=== PATIENT | male | born 1955 | race Caucasian/White ===

== ENCOUNTER 2023-04-21 06:12 | Day surgery (SDC) | payer MEDICARE, OTHER, SELFPAY ==
--- NOTE | 2023-03-17 09:15 | CM ---
Patient is scheduled for an elective R THR on 05/04/23- he is a same day patient. Spoke with patient's prior to surgery. Patient had a L TKR at in 2016. Reintroduced role of Orthopedic Navigator. She reports that she, patient, their son and
grandson lives with his in a two story home. There is one step to enter and patient has a first floor set up. He currently requires assist with putting on his socks and medication administration but otherwise functions independently. He has a
cane, cpap, raised toilet seat, firm cushion, grabber and rolling walker. He has had [facility]N services through [facility]. PCP is Oscar Rudd.
Discussed orthopedic program and post surgical plans. Reviewed that he will have VN services initially (medicare.gov website and ratings reviewed) and will then start outpatient PT. Patient selects [facility] (face sheet faxed to [facility] to facilitate
confirmation of benefits) for his home care needs and will go to [facility] for outpatient PT.
She is in agreement with plan and states that she will be home with him.
Patient will complete online education.
Plan: Orthopedic Navigator will remain available to assist with the care of patient and will reassess discharge needs after surgery.
[2023-03-29 10:31] VITALS: BMI 38.5
[2023-03-29 10:56] LABS: Hematocrit 40.4 % (39.0-52.0); Hemoglobin 13.5 g/dL (13.0-18.0); Mean Corp Hgb Conc. 33.4 g/dL (33.0-37.0); Mean Corpuscular Hgb 30.6 pg (27.0-31.0); Mean Corpuscular Volume 91.6 fL (80.0-94.0); Mean Platelet Volume 8.6 fL (7.4-10.4); Platelet Count 480 10^3/uL (130-400); Red Blood Cell Count 4.41 10^6/uL (4.70-6.10); Red Cell Dist. Width 13.5 % (11.5-14.5); White Blood Cell Count 11.1 10^3/uL (4.8-10.8)
[2023-03-29 11:13] LABS: ALT (SGPT) 25 U/L (0-50); AST (SGOT) 23 U/L (17-59); Albumin 4.5 g/dl (3.5-5.0); Alkaline Phosphatase 85 U/L (38-126); Blood Urea Nitrogen 13 mg/dl (9-20); Calcium 9.8 mg/dl (8.4-10.2); Carbon Dioxide 25 mmol/L (22-30); Chloride 101 mmol/L (98-107); Estimated Creatinine Clearance 115 ml/min; Glucose 143 mg/dl (70-99); Potassium 4.8 mmol/L (3.5-5.1); Sodium 134 mmol/L (135-145); Total Bilirubin 0.6 mg/dl (0.2-1.3); Total Protein 7.7 g/dl (6.3-8.2); eGFR > 60.00
[2023-03-29 13:14] LABS: Glycohemoglobin (HgbA1c) 7.2 % (4.0-5.6)
[2023-03-29 16:36] VITALS: BMI 38.5
[2023-04-21] VITALS (11 sets, daily range): BP systolic 124–168; BP diastolic 69–97; PULSE 86; O2SAT 97; BMI 38.5
[2023-04-21 06:20] LABS: Glucose - Point of Care 136 mg/dl (70-99)
[2023-04-21] MEDS: CELEBREX 200 MG PO (06:47)
[2023-04-21] MEDS: NORMOSOL-R 1000 IV (06:47)
[2023-04-21] MEDS: TYLENOL 650 MG PO (06:47)
--- NOTE | 2023-04-21 07:32 | W.DS.TRANS ---
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
-
Discharge Instructions:
Discharge Diagnosis/Procedures R JOANNA Dr. Rae 04/21/23
Diet Diabetic, Carb Controlled
Activity With Walker
Additional Activity hip precautions
Driving Restrictions No driving
Bathing Restrictions OK to Shower
Other Services [facility]
Instructions:
Stand-Alone Forms: SDS Total Hip and Knee D/C
Changes to Home Medications: Yes
Discharge Medications:
DC Medications w/original date entered in [facility]
albuterol sulfate 90 mcg/actuation aerosol inhaler 2 puff inhalation Q4H PRN wheezing 09/09/14
finasteride 5 mg tablet 5 mg PO DAILY 09/09/14
metformin 500 mg tablet 1,000 mg PO BID 09/09/14
simvastatin 5 mg tablet 5 mg PO HS 09/09/14
Vitamin B12: 1 dose PO .EVERY OTHER DAY 03/07/15
cetirizine 10 mg tablet 10 mg PO DAILY 03/07/15
Men 50 Plus Multivitamin 1 tab PO DAILY 03/22/23
amlodipine 5 mg tablet 10 mg PO DAILY 03/22/23
docusate sodium 100 mg capsule 100 mg PO PRN PRN constipation 03/22/23
infliximab 100 mg intravenous solution (Remicade) 100 mg IV .EVERY 8 WEEKS 03/22/23
insulin lispro 100 unit/mL subcutaneous solution (Humalog U-100 Insulin) 1 sliding scale dose SC .BEFORE MEALS 03/22/23
oxycodone-acetaminophen 7.5 mg-325 mg tablet 1 tab PO Q8H PRN pain 03/22/23
spironolactone 50 mg tablet 50 mg PO BID 03/22/23
tirzepatide 7.5 mg/0.5 mL subcutaneous pen injector (Mounjaro) 7.5 mg SC BARRETO 03/22/23
gabapentin 300 mg capsule 300 mg PO TID #30 caps 03/29/23
meloxicam 15 mg tablet 15 mg PO DAILY anti-inflammatory #14 tabs 03/29/23
mupirocin 2 % topical ointment 1 applic topical BID infection prevention #1 tube 03/29/23
oxycodone 10 mg tablet 10 mg PO Q4H PRN moderate-severe breakthru pain #50 tabs 03/29/23
oxycodone 10 mg tablet,crush resistant,extended release 12 hr (OxyContin) 10 mg PO Q12H ongoing therapy #15 tabs 03/29/23
Saccharomyces boulardii 250 mg capsule (Florastor) 250 mg PO BID #1 cap 04/21/23
acetaminophen 325 mg capsule (Tylenol) 650 mg PO QID #2 caps 04/21/23
aspirin 325 mg tablet 325 mg PO DAILY blood clot prevention #1 tab 04/21/23
beclomethasone dipropionate 40 mcg/actuation aerosol inhaler 80 mcg inhalation DAILY 04/21/23
cefadroxil 500 mg capsule 500 mg PO BID infection prevention #14 caps 04/21/23
duloxetine 60 mg capsule,delayed release 60 mg PO DAILY 04/21/23
hydralazine 50 mg tablet 50 mg PO BID #0 tabs 04/21/23
insulin glargine 100 unit/mL subcutaneous solution (Lantus U-100 Insulin) 40 unit (0.4 mL) SC DAILY #0 mL 04/21/23
magnesium hydroxide 400 mg/5 mL oral suspension (Milk of Magnesia) 30 ml PO HS PRN Constipation #1 mL 04/21/23
pantoprazole 40 mg tablet,delayed release 40 mg PO DAILY 04/21/23
sennosides 8.6 mg tablet (Senokot) 17.2 mg PO BID laxative #2 tabs 04/21/23
Home Medication Changes
gabapentin 300 mg capsule 300 mg PO TID #30 caps 03/29/23
meloxicam 15 mg tablet 15 mg PO DAILY anti-inflammatory #14 tabs 03/29/23
cefadroxil 500 mg capsule 500 mg PO BID infection prevention #14 caps 04/21/23
Pending Results: No
[2023-04-21 09:05] LABS: Glucose - Point of Care 138 mg/dl (70-99)
[2023-04-21] MEDS: ROXICODONE 5 MG PO ×2 (11:03→11:47)
[2023-04-21 11:17] LABS: Glucose - Point of Care 193 mg/dl (70-99)
[2023-04-21] MEDS: NOVOLOG vial 2 UNITS SC (11:20)
--- NOTE | 2023-04-21 11:35 | CM ---
Patient had planned R THR today. Met with patient and his at bedside to review discharge plans. Patient will be returning home today with services through [facility]. On Tuesday, 04/25, patient will start outpatient PT at [facility]. Reviewed MD follow
up in two weeks and patient is aware of need to schedule appointment.
Patient has his rolling walker here with him.
PT and [facility] were kept updated as to progress and discharge plans.
[2023-04-21] MEDS: ANCEF 5 IV (11:37)
--- NOTE | 2023-04-22 09:20 | OR.RPT ---
Operative Report
Operative Report
Orthopaedic Surgery Operative Note
DATE OF OPERATION: 04/21/2023
PREOPERATIVE DIAGNOSES: Osteoarthritis, right hip
POSTOPERATIVE DIAGNOSES: Same
OPERATION PERFORMED: Right total hip arthroplasty.
SURGEON: Toan Rae MD
WORKGROUP LEADER: Javier Cummings PA-C who assisted with patient positioning and retraction
ANESTHESIA: Spinal
COMPLICATIONS: None.
ESTIMATED BLOOD LOSS: 50 mL.
DRAINS: None
SPECIMEN: None
FINDINGS: Advanced articular cartilage wear on the femoral head and acetabulum.
IMPLANTS:
Biomet G7 Acetabular Shell, cluster hole, size 56mm
Biomet G7 Highly Crosslinked PE Liner, neutral
[place] M/L Taper femoral stem, size 12.5 with standard neck length and standard offset
Biolox Ceramic Head, size 40mm +0
INDICATIONS: The patient presented to my office with debilitating right hip pain due to osteoarthritis. We reviewed the natural history of this problem, as well as the risks, benefits, and alternatives of various treatment options. The patient
exhausted all nonoperative treatment options and wished to proceed with hip replacement surgery. The patient understood the risks which included, but were not limited to, bleeding, infection, failure to relieve pain, more pain than preop, damage to
blood vessels and nerves, need for reoperation, mechanical failure of the implants, wound healing problems, stiffness, instability, blood clot, pulmonary embolism, myocardial infarction, pneumonia, arrhythmia, CVA, and . The patient accepted
these risks and wished to proceed. All questions were answered, and informed consent was obtained.
PROCEDURE IN DETAIL: The patient was identified in the preoperative holding area. The right hip was identified as the operative site. The patient was taken in the operating room and transferred to the operative table. Spinal anesthesia was
performed. IV antibiotics and tranexamic acid were administered. The patient was placed in the lateral position with Stulberg hip positioners. Axillary roll was placed. The down leg was well padded. All bony prominences were well padded. The
operative limb was prepped and draped in the usual sterile fashion.
Time out was performed. A posterolateral approach to the hip was used. The skin incision was centered over the greater trochanter. This was taken down sharply through subcutaneous tissues. Meticulous hemostasis was achieved throughout the case with
electrocautery. We split the fascia audelia in line with skin incision. I split the gluteus torey bluntly. We cauterized all crossing vessels as we split it. I palpated the sciatic nerve and made sure it was well posterior in the operative field. It
was protected throughout the case.
I performed a partial bursectomy to identify the short external rotators. The gluteus medius and minimus were identified and retracted anteriorly. I incised the piriformis tendon and conjoint tendon at their insertions. These were tagged for later
repair. I then performed a trapezoidal capsulotomy. The edges were tagged for later repair. I referenced the cut edge of the capsular flap to 2 fixed points on the greater trochanter for assistance with recreation of limb length and offset. I then
dislocated the hip posteriorly. I performed a femoral neck osteotomy approximately 10 mm above the lesser trochanter, as per preoperative templating. The femoral head measured 51 mm in outer diameter. The distance between neck cut and the center of
femoral head was 37.5. I placed a curve hohmann retractor over the anterior lip of the acetabulum between the labrum and the anterior hip capsule. A second retractor was placed inferiorly just distal to the transverse acetabular ligament.
Circumferential view of the acetabulum was achieved. I incised the labrum and pulvinar with electrocautery. I started with a 51 mm reamer and reamed down to the medial wall. I then sequentially reamed up to a 55mm reamer. This gave a nice bed of
bleeding bone with excellent column support anteriorly and posteriorly. I impacted the acetabular shell in approximately 40 degrees of abduction and 20 degrees of anteversion. I matched the anteversion of the transverse acetabular ligament. I also
made sure that the anterior rim of the socket was not proud of the anterior wall to minimize the chance of iliopsoas tendinitis. I confirmed the cup was well-seated. I then impacted a neutral liner and confirmed it was well seated with the locking
mechanism.
On the femoral side, I use a box osteotome to open the proximal starting point. I found the canal with a Charnley awl and a lateralizing reamer. I then used the [place] M/L taper broaches sequentially to prepare the femoral canal. The size 12.5 came
to a stop at the desired level and had excellent axial and rotational stability. We trialed with a trial ball head. The hip was taken through a complete range of motion. It was noted to be stable in extension without impingement. It was stable in
the position of sleep and in flexion with internal rotation. The limb length and offset were checked compared to the capsular flap and was appropriate. The measured length between the neck cut and center of the trial femoral head was 40mm.
I removed the trials. I impacted the femoral implant to match the nome version. It had excellent axial and rotational stability. Trial ball head was placed, and I reduced the hip and took the hip through range of motion. There was no impingement
in external rotation and extension. Position of sleep was stable. At 90 degrees of flexion and slight adduction, the hip could be internally rotated to 90 degrees with no subluxation. I palpated the sciatic nerve, which was tension free and
unharmed. Based on our capsular flap measurement, we had restored the offset and leg length. The trial ball head was removed, and the final ball head was impacted onto a clean and dry Burch taper. The hip was reduced.
A dilute betadine soak was performed for approximately 3 minutes, and then the hip was copiously irrigated. I repaired the capsule, piraformis, and conjoint tendon with #2 Ethibond to drill holes in the greater trochanter. Local anesthetic was
injected. The fascia audelia was closed with #1 PDS in running fashion. The subcutaneous tissues were closed with 2-0 PDS in running fashion. The skin was reapproximated with 3-0 Monocryl subcuticular suture. I placed a Prineo dressing followed by a
Mepilex Ag dressing. The patient awoke from anesthesia without difficulty. Sponge and instrument counts were correct x2 at the end of the case.
I was present and participated in the entire procedure. The patient was sent to the recovery room in stable condition.
Ko Rae MD
== END 2023-04-21 12:52 | disposition home health service (06) ==
LOC: SDS 06:12
PROVIDERS: ATTENDING PHYSICIAN Orthopaedic Surgery; FAMILY PHYSICIAN Physician Assistant Medical; OTHER PHYSICIAN Internal Medicine Cardiovascular Disease; OTHER PHYSICIAN Physician Assistant; OTHER PHYSICIAN Physician Assistant Medical
DX: M16.11 Unilateral primary osteoarthritis, right hip (principal)
CPT/HCPCS: 27130; 36415; 73502; 80053; 82962; 83036; 85027; 87070; 93005; 97116; 97161; C1776

== ENCOUNTER → 2023-07-14 11:47 | Outpatient (REF) | payer MEDICARE, OTHER, SELFPAY ==
[2023-07-14 14:08] LABS: % Basophils 1.1 % (0-2); % Eosinophils 8.3 % (0-6); % Immature Granulocytes 0.3 % (0-0.5); % Monocytes 8.3 % (1.7-9.3); Absolute Basophils 0.1 10^3/uL (0-0.2); Absolute Eosinophils 0.7 10^3/uL (0-0.7); Absolute Lymphocytes 1.7 10^3/uL (1.2-3.4); Absolute Monocytes 0.7 10^3/uL (0.1-0.6); Absolute Neutrophils 5.6 10^3/uL (1.4-6.5); Hematocrit 36.2 % (39.0-52.0); Hemoglobin 11.8 g/dL (13.0-18.0); Mean Corp Hgb Conc. 32.6 g/dL (33.0-37.0); Mean Corpuscular Hgb 27.5 pg (27.0-31.0); Mean Corpuscular Volume 84.4 fL (80.0-94.0); Mean Platelet Volume 8.5 fL (7.4-10.4); Nucleated Red Blood Cells % 0 % (-); Platelet Count 504 10^3/uL (130-400); Red Blood Cell Count 4.29 10^6/uL (4.70-6.10); White Blood Cell Count 8.9 10^3/uL (4.8-10.8)
[2023-07-14 15:10] LABS: ALT (SGPT) 15 U/L (0-50); AST (SGOT) 19 U/L (17-59); Albumin 4.6 g/dl (3.5-5.0); Alkaline Phosphatase 84 U/L (38-126); Blood Urea Nitrogen 12 mg/dl (9-20); Calcium 10.2 mg/dl (8.4-10.2); Carbon Dioxide 24 mmol/L (22-30); Chloride 101 mmol/L (98-107); Glucose 156 mg/dl (70-99); HDL Cholesterol 52 mg/dl; LDL Cholesterol, Calculated 45 mg/dl; PSA, Total - Screen < 0.06 ng/ml (0.0-4.0); Sodium 135 mmol/L (135-145); TSH 0.72 uIU/ml (0.47-4.68); Total Bilirubin 0.4 mg/dl (0.2-1.3); Total Cholesterol 141 mg/dl (50-199); Total Protein 7.8 g/dl (6.3-8.2); Triglyceride 220 mg/dl (10-149); Very Low Density Lipoprotein 44 mg/dl (0-30); eGFR > 60.00
[2023-07-15 08:53] LABS: Glycohemoglobin (HgbA1c) 7.7 % (4.0-5.6)
== END ==
LOC: REG 11:47
PROVIDERS: ATTENDING PHYSICIAN Physician Assistant; FAMILY PHYSICIAN Physician Assistant Medical
DX: E11.65 Type 2 diabetes mellitus with hyperglycemia (principal); E04.1 Nontoxic single thyroid nodule; R79.89 Other specified abnormal findings of blood chemistry; Z12.5 Encounter for screening for malignant neoplasm of prostate
CPT/HCPCS: 36415; 80053; 80061; 83036; 84443; 85025; G0103

== ENCOUNTER → 2023-08-30 06:23 | Day surgery (SDC) | payer MEDICARE, OTHER, SELFPAY ==
[2023-08-30 07:57] LABS: Glucose - Point of Care 163 mg/dl (70-99)
== END ==
LOC: GI 06:23
PROVIDERS: ATTENDING PHYSICIAN Internal Medicine Gastroenterology; FAMILY PHYSICIAN Physician Assistant Medical
DX: Z12.11 Encounter for screening for malignant neoplasm of colon (principal); K57.30 Diverticulosis of large intestine without perforation or abscess without bleeding; K22.2 Esophageal obstruction; K44.9 Diaphragmatic hernia without obstruction or gangrene; R12 Heartburn; D12.2 Benign neoplasm of ascending colon; D12.3 Benign neoplasm of transverse colon; Z86.010 Personal history of colon polyps
CPT/HCPCS: 45385; 43235; 88305; 82962

== ENCOUNTER → 2023-10-10 11:09 | Outpatient (REF) | payer MEDICARE, OTHER, SELFPAY ==
[2023-10-10 12:21] LABS: % Basophils 1.7 % (0-2); % Eosinophils 13.9 % (0-6); % Immature Granulocytes 0.7 % (0-0.5); % Lymphocytes 24.1 % (20.5-51.1); % Monocytes 10.2 % (1.7-9.3); % Neutrophils 49.4 % (42.2-75.2); Absolute Basophils 0.2 10^3/uL (0-0.2); Absolute Eosinophils 1.2 10^3/uL (0-0.7); Absolute Immature Granulocytes 0.1 10^3/uL (0-0.05); Absolute Lymphocytes 2.2 10^3/uL (1.2-3.4); Absolute Monocytes 0.9 10^3/uL (0.1-0.6); Absolute Neutrophils 4.4 10^3/uL (1.4-6.5); Hematocrit 37.4 % (39.0-52.0); Hemoglobin 12.7 g/dL (13.0-18.0); Mean Corpuscular Volume 88.2 fL (80.0-94.0); Mean Platelet Volume 8.5 fL (7.4-10.4); Nucleated Red Blood Cells % 0 % (-); Platelet Count 425 10^3/uL (130-400); Red Blood Cell Count 4.24 10^6/uL (4.70-6.10); White Blood Cell Count 8.9 10^3/uL (4.8-10.8)
[2023-10-10 12:57] LABS: ALT (SGPT) 18 U/L (0-50); AST (SGOT) 18 U/L (17-59); Albumin 4.6 g/dl (3.5-5.0); Alkaline Phosphatase 86 U/L (38-126); Blood Urea Nitrogen 14 mg/dl (9-20); Calcium 10.1 mg/dl (8.4-10.2); Carbon Dioxide 26 mmol/L (22-30); Chloride 98 mmol/L (98-107); Glucose 213 mg/dl (70-99); HDL Cholesterol 52 mg/dl; Iron 135 ug/dl (49-181); LDL Cholesterol, Calculated 68 mg/dl; Potassium 5.1 mmol/L (3.5-5.1); Sodium 136 mmol/L (135-145); Total Bilirubin 0.4 mg/dl (0.2-1.3); Total Cholesterol 165 mg/dl (50-199); Total Protein 7.5 g/dl (6.3-8.2); Triglyceride 228 mg/dl (10-149); Very Low Density Lipoprotein 45 mg/dl (0-30); eGFR > 60.00
[2023-10-10 12:58] LABS: C-Reactive Protein < 5.00 mg/L (0.0-10.00)
[2023-10-10 13:06] LABS: Percent Saturation 43 % (20-50); Total Iron Binding Capacity 313 ug/dl (261-462)
[2023-10-10 13:07] LABS: Microalbumin/creatinine Ratio 7.4 mg/g
[2023-10-10 13:14] LABS: Glycohemoglobin (HgbA1c) 7.9 % (4.0-5.6)
[2023-10-10 13:33] LABS: Ferritin 70.8 ng/ml (17.9-464.0)
[2023-10-10 13:47] LABS: Vitamin B12 381 pg/ml (239-931)
[2023-10-10 15:45] LABS: Erythrocyte Sed Rate 20 mm/hour (0-20)
[2023-10-10 18:41] LABS: Hepatitis B Surface Antigen Negative (Negative)
[2023-10-10 18:59] LABS: Hepatitis B Core Ab, Total Negative (Negative); Hepatitis B Surface Antibody Negative
[2023-10-12 10:39] LABS: Vitamin D 1,25 Dihydroxy 31.4 pg/mL (19.9-79.3)
== END ==
LOC: REG 11:09
PROVIDERS: ATTENDING PHYSICIAN Specialist; FAMILY PHYSICIAN Physician Assistant; OTHER PHYSICIAN Internal Medicine Gastroenterology; REFERRING PHYSICIAN Nurse Practitioner Adult Health
DX: E11.8 Type 2 diabetes mellitus with unspecified complications (principal); E11.65 Type 2 diabetes mellitus with hyperglycemia; D75.839 Thrombocytosis, unspecified; D64.9 Anemia, unspecified; D50.9 Iron deficiency anemia, unspecified; E56.8 Deficiency of other vitamins; K50.90 Crohn's disease, unspecified, without complications
CPT/HCPCS: 36415; 80053; 80061; 82043; 82570; 82607; 82652; 82728; 83036; 83540; 83550; 85025; 85652; 86140; 86704; 86706; 87340

== ENCOUNTER → 2023-10-12 15:34 | Outpatient (REF) | payer MEDICARE, OTHER, SELFPAY | LOC: REG 15:34 | PROVIDERS: ATTENDING PHYSICIAN Internal Medicine Gastroenterology | DX: K50.90 Crohn's disease, unspecified, without complications (principal) | CPT/HCPCS: 83993 ==

== ENCOUNTER → 2024-02-25 11:21 | Outpatient (REF) | payer MEDICARE, OTHER, SELFPAY ==
[2024-02-25 12:40] LABS: % Basophils 1.1 % (0-2); % Eosinophils 11.6 % (0-6); % Immature Granulocytes 1.4 % (0-0.5); % Lymphocytes 23.1 % (20.5-51.1); % Monocytes 9.6 % (1.7-9.3); % Neutrophils 53.2 % (42.2-75.2); Absolute Basophils 0.1 10^3/uL (0-0.2); Absolute Eosinophils 1.2 10^3/uL (0-0.7); Absolute Immature Granulocytes 0.2 10^3/uL (0-0.05); Absolute Lymphocytes 2.4 10^3/uL (1.2-3.4); Absolute Neutrophils 5.6 10^3/uL (1.4-6.5); Hematocrit 40.9 % (39.0-52.0); Hemoglobin 13.4 g/dL (13.0-18.0); Mean Corp Hgb Conc. 32.8 g/dL (33.0-37.0); Mean Corpuscular Hgb 30.6 pg (27.0-31.0); Mean Corpuscular Volume 93.4 fL (80.0-94.0); Nucleated Red Blood Cells % 0 % (-); Platelet Count 432 10^3/uL (130-400); Red Blood Cell Count 4.38 10^6/uL (4.70-6.10); Red Cell Dist. Width 13.2 % (11.5-14.5); White Blood Cell Count 10.5 10^3/uL (4.8-10.8)
[2024-02-25 13:06] LABS: ALT (SGPT) 30 U/L (0-50); AST (SGOT) 24 U/L (17-59); Albumin 4.8 g/dl (3.5-5.0); Alkaline Phosphatase 78 U/L (38-126); Blood Urea Nitrogen 13 mg/dl (9-20); Carbon Dioxide 27 mmol/L (22-30); Chloride 99 mmol/L (98-107); Glucose 222 mg/dl (70-99); HDL Cholesterol 49 mg/dl; LDL Cholesterol, Calculated 50 mg/dl; Potassium 5.2 mmol/L (3.5-5.1); Sodium 138 mmol/L (135-145); Total Bilirubin 0.5 mg/dl (0.2-1.3); Total Cholesterol 139 mg/dl (50-199); Total Protein 8.1 g/dl (6.3-8.2); Triglyceride 201 mg/dl (10-149); Very Low Density Lipoprotein 40 mg/dl (0-30); eGFR > 60.00
[2024-02-25 13:09] LABS: C-Reactive Protein < 5.00 mg/L (0.0-10.00)
== END ==
LOC: REG 11:21
PROVIDERS: ATTENDING PHYSICIAN Physician Assistant; FAMILY PHYSICIAN Physician Assistant Medical; REFERRING PHYSICIAN Internal Medicine Gastroenterology
DX: E11.65 Type 2 diabetes mellitus with hyperglycemia (principal); K50.813 Crohn's disease of both small and large intestine with fistula
CPT/HCPCS: 36415; 80053; 80061; 83036; 85025; 86140

== ENCOUNTER → 2024-02-27 08:41 | Outpatient (REF) | payer MEDICARE, OTHER, SELFPAY | LOC: RAD 08:41 | PROVIDERS: ATTENDING PHYSICIAN Internal Medicine Gastroenterology; FAMILY PHYSICIAN Physician Assistant Medical | DX: K50.813 Crohn's disease of both small and large intestine with fistula (principal) | CPT/HCPCS: 74177; Q9967 ==

== ENCOUNTER 2024-04-25 06:31 | Day surgery (SDC) | payer MEDICARE, OTHER, SELFPAY ==
[2024-04-25 07:18] LABS: Glucose - Point of Care 232 mg/dl (70-99)
== END 2024-04-25 08:19 | disposition home or self-care (01) ==
LOC: GI 06:31
PROVIDERS: ATTENDING PHYSICIAN Internal Medicine Gastroenterology; FAMILY PHYSICIAN Physician Assistant Medical
DX: Z12.11 Encounter for screening for malignant neoplasm of colon (principal); D12.3 Benign neoplasm of transverse colon; D12.5 Benign neoplasm of sigmoid colon; K50.80 Crohn's disease of both small and large intestine without complications; K57.30 Diverticulosis of large intestine without perforation or abscess without bleeding; Q43.8 Other specified congenital malformations of intestine; K56.2 Volvulus; Z86.0101 Personal history of adenomatous and serrated colon polyps
CPT/HCPCS: 45385; 45380; 88305; 82962

== ENCOUNTER → 2024-05-26 10:58 | Outpatient (REF) | payer MEDICARE, OTHER, SELFPAY ==
[2024-05-26 12:28] LABS: % Basophils 1.1 % (0-2); % Eosinophils 14.5 % (0-6); % Immature Granulocytes 0.5 % (0-0.5); % Lymphocytes 26.1 % (20.5-51.1); % Monocytes 10.5 % (1.7-9.3); % Neutrophils 47.3 % (42.2-75.2); Absolute Basophils 0.1 10^3/uL (0-0.2); Absolute Eosinophils 1.3 10^3/uL (0-0.7); Absolute Lymphocytes 2.3 10^3/uL (1.2-3.4); Absolute Monocytes 0.9 10^3/uL (0.1-0.6); Absolute Neutrophils 4.2 10^3/uL (1.4-6.5); Hematocrit 39.3 % (39.0-52.0); Mean Corp Hgb Conc. 33.1 g/dL (33.0-37.0); Mean Corpuscular Hgb 30.8 pg (27.0-31.0); Mean Corpuscular Volume 93.1 fL (80.0-94.0); Mean Platelet Volume 8.9 fL (7.4-10.4); Nucleated Red Blood Cells % 0 % (-); Platelet Count 436 10^3/uL (130-400); Red Blood Cell Count 4.22 10^6/uL (4.70-6.10); White Blood Cell Count 8.8 10^3/uL (4.8-10.8)
[2024-05-26 13:06] LABS: ALT (SGPT) 31 U/L (0-50); AST (SGOT) 22 U/L (17-59); Albumin 4.7 g/dl (3.5-5.0); Alkaline Phosphatase 103 U/L (38-126); Blood Urea Nitrogen 10 mg/dl (9-20); Calcium 10.1 mg/dl (8.4-10.2); Carbon Dioxide 26 mmol/L (22-30); Chloride 96 mmol/L (98-107); Glucose 264 mg/dl (70-99); HDL Cholesterol 52 mg/dl; LDL Cholesterol, Calculated 41 mg/dl; Sodium 135 mmol/L (135-145); Total Bilirubin 0.7 mg/dl (0.2-1.3); Total Cholesterol 131 mg/dl (50-199); Total Protein 7.6 g/dl (6.3-8.2); Triglyceride 192 mg/dl (10-149); Very Low Density Lipoprotein 38 mg/dl (0-30); eGFR > 60.00
[2024-05-27 09:41] LABS: Glycohemoglobin (HgbA1c) 8.8 % (4.0-5.6)
[2024-05-28 12:41] LABS: Iron 115 ug/dl (49-181)
== END ==
LOC: REG 10:58
PROVIDERS: ATTENDING PHYSICIAN Physician Assistant; FAMILY PHYSICIAN Physician Assistant Medical
DX: E11.65 Type 2 diabetes mellitus with hyperglycemia (principal)
CPT/HCPCS: 36415; 80053; 80061; 83036; 83540; 85025

== ENCOUNTER → 2024-08-28 13:14 | Outpatient (REF) | payer MEDICARE, OTHER, SELFPAY ==
[2024-08-28 15:55] LABS: Hematocrit 38.8 % (39.0-52.0); Hemoglobin 13.1 g/dL (13.0-18.0); Mean Corp Hgb Conc. 33.8 g/dL (33.0-37.0); Mean Corpuscular Hgb 30.8 pg (27.0-31.0); Mean Corpuscular Volume 91.3 fL (80.0-94.0); Mean Platelet Volume 8.8 fL (7.4-10.4); Platelet Count 466 10^3/uL (130-400); Red Blood Cell Count 4.25 10^6/uL (4.70-6.10); Red Cell Dist. Width 12.7 % (11.5-14.5); White Blood Cell Count 9.8 10^3/uL (4.8-10.8)
[2024-08-28 16:09] LABS: ALT (SGPT) 36 U/L (0-50); AST (SGOT) 29 U/L (17-59); Albumin 4.7 g/dl (3.5-5.0); Alkaline Phosphatase 88 U/L (38-126); Blood Urea Nitrogen 11 mg/dl (9-20); Carbon Dioxide 24 mmol/L (22-30); Chloride 102 mmol/L (98-107); Glucose 276 mg/dl (70-99); HDL Cholesterol 46 mg/dl; LDL Cholesterol, Calculated 34 mg/dl; Sodium 135 mmol/L (135-145); Total Bilirubin 0.6 mg/dl (0.2-1.3); Total Cholesterol 121 mg/dl (50-199); Total Protein 7.9 g/dl (6.3-8.2); Triglyceride 205 mg/dl (10-149); Very Low Density Lipoprotein 41 mg/dl (0-30); eGFR > 60.00
== END ==
LOC: HWLAB 13:14
PROVIDERS: ATTENDING PHYSICIAN Physician Assistant; FAMILY PHYSICIAN Physician Assistant Medical
DX: E11.65 Type 2 diabetes mellitus with hyperglycemia (principal)
CPT/HCPCS: 36415; 80053; 80061; 83036; 85027

== ENCOUNTER → 2025-01-09 11:57 | Outpatient (REF) | payer MEDICARE, OTHER, SELFPAY ==
[2025-01-09 15:33] LABS: Hematocrit 38.5 % (39.0-52.0); Hemoglobin 12.8 g/dL (13.0-18.0); Mean Corp Hgb Conc. 33.2 g/dL (33.0-37.0); Mean Corpuscular Volume 91.2 fL (80.0-94.0); Nucleated Red Blood Cells % 0 % (-); Platelet Count 467 10^3/uL (130-400); Red Cell Dist. Width 12.7 % (11.5-14.5)
[2025-01-09 15:41] LABS: ALT (SGPT) 27 U/L (0-50); AST (SGOT) 20 U/L (17-59); Albumin 4.5 g/dl (3.5-5.0); Alkaline Phosphatase 87 U/L (38-126); Blood Urea Nitrogen 12 mg/dl (9-20); Calcium 9.8 mg/dl (8.4-10.2); Carbon Dioxide 27 mmol/L (22-30); Chloride 99 mmol/L (98-107); Glucose 298 mg/dl (70-99); HDL Cholesterol 49 mg/dl; Iron 129 ug/dl (49-181); LDL Cholesterol, Calculated 38 mg/dl; Potassium 5.0 mmol/L (3.5-5.1); Sodium 135 mmol/L (135-145); Total Protein 7.7 g/dl (6.3-8.2); Very Low Density Lipoprotein 43 mg/dl (0-30); eGFR > 60.00
[2025-01-09 15:50] LABS: Total Iron Binding Capacity 368 ug/dl (261-462)
[2025-01-09 16:11] LABS: PSA, Total - Screen < 0.06 ng/ml (0.0-4.0)
[2025-01-10 08:48] LABS: Glycohemoglobin (HgbA1c) 8.7 % (4.0-5.9)
== END ==
LOC: HWLAB 11:57
PROVIDERS: ATTENDING PHYSICIAN Physician Assistant; FAMILY PHYSICIAN Physician Assistant Medical
DX: E11.65 Type 2 diabetes mellitus with hyperglycemia (principal); Z91.010 Allergy to peanuts; E29.1 Testicular hypofunction; E66.01 Morbid (severe) obesity due to excess calories; E78.2 Mixed hyperlipidemia; I77.89 Other specified disorders of arteries and arterioles; F33.1 Major depressive disorder, recurrent, moderate; K21.9 Gastro-esophageal reflux disease without esophagitis; K50.913 Crohn's disease, unspecified, with fistula; E10.65 Type 1 diabetes mellitus with hyperglycemia; G62.9 Polyneuropathy, unspecified; Z00.00 Encounter for general adult medical examination without abnormal findings; R25.1 Tremor, unspecified; R74.01 Elevation of levels of liver transaminase levels; R79.89 Other specified abnormal findings of blood chemistry; D75.839 Thrombocytosis, unspecified; Z86.73 Personal history of transient ischemic attack (TIA), and cerebral infarction without residual deficits; F17.290 Nicotine dependence, other tobacco product, uncomplicated; Z87.438 Personal history of other diseases of male genital organs; J45.909 Unspecified asthma, uncomplicated; G47.33 Obstructive sleep apnea (adult) (pediatric); Z12.5 Encounter for screening for malignant neoplasm of prostate
CPT/HCPCS: 36415; 80053; 80061; 83036; 83540; 83550; 85025; G0103